=== PATIENT | female | born 1970 | race Native Hawaiian/Other Pacific Islander ===

== ENCOUNTER 2016-08-02 09:45 | Emergency (ER) | payer OTHER ==
[~2016-08-02] VITALS: Ht 157.5 cm; Wt 58.5 kg
[~2016-08-02 09:45] MED LIST: ALBU0.084 IN
[2016-08-02 09:55] VITALS: BP 107/65
[2016-08-02] MEDS ORDERED: ALBUTEROL SULF 2.5 MG/0.5ML(0.5%) NEB SOLN ONE (11:35)
[2016-08-02] MEDS ORDERED: ALBUTEROL SULF 2.5 MG/0.5ML(0.5%) NEB SOLN NEB ONE ×2 (11:45)
[2016-08-02] MEDS ORDERED: IPRATROPIUM BROM 0.5 MG/2.5ML INH SOL NEB ONE (11:45)
[2016-08-02] MEDS ORDERED: methylPREDNISolone SOD SUCC 125 MG/2 ML VL IM ONE (11:45)
[2016-08-02] MEDS ORDERED: cefTRIAXone SOD 500 MG VL IM ONE (11:45)
== END 2016-08-02 12:43 | disposition home or self-care (01) ==
LOC: ER 09:45
DX: J45.901 Unspecified asthma with (acute) exacerbation (principal)
CPT/HCPCS: 94640; 96372; 99283; J2930

== ENCOUNTER 2018-11-27 03:42 | Inpatient (IN) | payer MEDICAID | END 2018-11-28 18:46 | disposition home or self-care (01) | LOC: ER 03:42 → TELE 03:43 → TELE-WESTW 15:36 | DX: J45.42 Moderate persistent asthma with status asthmaticus (principal) ==

== ENCOUNTER → 2019-08-15 | Emergency (ER) | payer SELFPAY ==
[~2019-08-15] VITALS: Ht 157.5 cm; Wt 56.7 kg
[~2019-08-15] MED LIST changes: +ALBUAER3 IN; +ALBUTEROL SULF 2.5 MG/0.5ML(0.5%) NEB SOLN HHN ONE; +CETI1TAB36 PO; +IPRATROPIUM BROM 0.5 MG/2.5ML INH SOL HHN ONE; +SODIUM CHLORIDE 0.9% 1,000 ML IV ONE; +cefTRIAXone 1GM/50ML D5W 50 ML IV ONE; +methylPREDNISolone SOD SUCC 125 MG/2 ML VL IV ONE
[2019-08-15 02:45] LABS: Basophils # (auto) 0.1 10 ^3/uL (0-0.2); Basophils % (auto) 0.3 % (0.0-2.0); Eosinophils # (auto) 0.1 10 ^3/uL (0-0.8); Eosinophils % (auto) 0.6 % (0.0-7.0); Hematocrit 39.8 % (36.0-46.0); Hemoglobin 12.5 g/dL (12.2-16.2); Lymphocytes # (auto) 0.7 10 ^3/uL (0.4-5.4); Lymphocytes % (auto) 3.4 % (10.0-50.0); Mean Corpuscular Hemoglobin 24.5 pg (28.0-32.0); Mean Corpuscular Hgb Conc. 31.3 g/dL (32.0-36.0); Mean Corpuscular Volume 78.3 fL (80.0-100.0); Monocytes # (auto) 0.9 10 ^3/uL (0-1.3); Monocytes % (auto) 4.2 % (0.0-12.0); Neutrophils # (auto) 19.7 10 ^3/uL (1.6-8.6); Neutrophils % (auto) 91.5 % (37.0-80.0); Platelet Count (auto) 488 10^3/uL (140-450); Red Blood Cells 5.09 10^6/uL (4.0-5.20); Red Cell Distribution Width 17.1 % (11.8-14.3); White Blood Cell 21.5 10^3/uL (4.4-10.8)
[2019-08-15 03:10] LABS: Alanine Aminotransferase 22 U/L (13-56); Albumin 3.5 g/dL (3.4-5.0); Anion Gap 7 (5-15); Aspartate Aminotransferase 17 U/L (15-37); BUN/Creatinine Ratio 16.9; Blood Urea Nitrogen 12 mg/dL (7-18); Calcium 8.3 mg/dL (8.5-10.1); Carbon Dioxide 24 mmol/L (21-32); Chloride 104 mmol/L (98-107); GFR African American 113 mL/min; GFR Non-African American 93 mL/min; Glucose 134 mg/dL (74-106); Magnesium 2.1 mg/dL (1.6-2.6); Potassium 3.5 mmol/L (3.5-5.1); Sodium 135 mmol/L (136-145)
[2019-08-15 03:15] LABS: Alkaline Phosphatase 96 U/L (45-117); Bilirubin, Total 0.3 mg/dL (0.2-1.0); Total Protein 8.4 g/dL (6.4-8.2)
[2019-08-15 03:20] LABS: Lactic Acid w/Reflex 2.7 mmol/L (0.4-2.0)
[2019-08-15 05:00] VITALS: BP 125/86
== END | disposition home or self-care (01) ==
LOC: ER 01:05
DX: J06.9 Acute upper respiratory infection, unspecified (principal); D72.829 Elevated white blood cell count, unspecified; R11.2 Nausea with vomiting, unspecified; J45.909 Unspecified asthma, uncomplicated
CPT/HCPCS: 36415; 71045; 80053; 83605; 83735; 83880; 84484; 84702; 85025; 87040; 94640; 96361; 96365; 96375; 99284; J0696; J2930; J7030; J7644

== ENCOUNTER 2019-11-06 22:56 | Inpatient (IN) | payer MEDICAID ==
[~2019-11-06] VITALS: Ht 154.9 cm; Wt 60.5 kg
[~2019-11-06 22:56] MED LIST changes: -ALBUTEROL SULF 2.5 MG/0.5ML(0.5%) NEB SOLN HHN ONE; -IPRATROPIUM BROM 0.5 MG/2.5ML INH SOL HHN ONE; -SODIUM CHLORIDE 0.9% 1,000 ML IV ONE; -cefTRIAXone 1GM/50ML D5W 50 ML IV ONE; -methylPREDNISolone SOD SUCC 125 MG/2 ML VL IV ONE
[2019-11-06] MEDS ORDERED: methylPREDNISolone SOD SUCC 125 MG/2 ML VL IM ONE (23:45)
[2019-11-07] MEDS ORDERED: IPRATROPIUM BROM 0.5 MG/2.5ML INH SOL NEB ONE ×3 (02:30→07:30)
[2019-11-07] MEDS ORDERED: ALBUTEROL SULF 2.5 MG/0.5ML(0.5%) NEB SOLN NEB ONE ×3 (02:30→07:30)
[2019-11-07 03:13] LABS: Alcohol, Urine < 3.0 mg/dL (0-10); Amphetamine Screen, Urine POSITIVE (NEGATIVE); Barbiturate Scree,Urine NEGATIVE (NEGATIVE); Benzodiazephine Screen, Urine NEGATIVE (NEGATIVE); Cannabinoid Screen, Urine POSITIVE (NEGATIVE); Cocaine Screen, Urine NEGATIVE (NEGATIVE); Opiate Scree,Urine NEGATIVE (NEGATIVE); Phencyclidine Screen, Urine NEGATIVE (NEGATIVE)
[2019-11-07] MEDS ORDERED: DOCUSATE SOD 100 MG CAP PO PRN (07:45)
[2019-11-07] MEDS ORDERED: LORazepam 0.5 MG TAB PO PRN (07:45)
[2019-11-07] MEDS ORDERED: ACETAMINOPHEN 325 MG TAB PO PRN (07:45)
[2019-11-07] MEDS ORDERED: ONDANSETRON HCL 4 MG/2 ML VIAL IV PRN (07:45)
[2019-11-07 08:12] LABS: Basophils # (auto) 0 10 ^3/uL (0-0.2); Eosinophils # (auto) 0 10 ^3/uL (0-0.8); Eosinophils % (auto) 0.1 % (0.0-7.0); Lymphocytes # (auto) 0.3 10 ^3/uL (0.4-5.4); Monocytes # (auto) 0.1 10 ^3/uL (0-1.3); Nucleated Red Blood Cells % 0.1 %; White Blood Cell 5.3 10^3/uL (4.4-10.8)
[2019-11-07 08:13] LABS: Basophils % (auto) 0.1 % (0.0-2.0); Hematocrit 36.7 % (36.0-46.0); Hemoglobin 11.4 g/dL (12.2-16.2); Lymphocytes % (auto) 5.7 % (10.0-50.0); Mean Corpuscular Hemoglobin 23.6 pg (28.0-32.0); Mean Corpuscular Hgb Conc. 31.2 g/dL (32.0-36.0); Mean Corpuscular Volume 75.6 fL (80.0-100.0); Monocytes % (auto) 1.1 % (0.0-12.0); Neutrophils # (auto) 4.9 10 ^3/uL (1.6-8.6); Platelet Count (auto) 382 10^3/uL (140-450); Red Blood Cells 4.85 10^6/uL (4.0-5.20); Red Cell Distribution Width 17.2 % (11.8-14.3)
[2019-11-07] MEDS: SODIUM CHLORIDE 0.9% 1,000 ML IV SCH (08:36)
[2019-11-07 08:41] LABS: Alanine Aminotransferase 17 U/L (13-56); Albumin 3.2 g/dL (3.4-5.0); Anion Gap 7 (5-15); Aspartate Aminotransferase 14 U/L (15-37); BUN/Creatinine Ratio 19.2; Blood Urea Nitrogen 14 mg/dL (7-18); Calcium 7.5 mg/dL (8.5-10.1); Carbon Dioxide 25 mmol/L (21-32); Chloride 106 mmol/L (98-107); GFR African American 109 mL/min; GFR Non-African American 90 mL/min; Glucose 136 mg/dL (74-106); Potassium 3.3 mmol/L (3.5-5.1); Sodium 138 mmol/L (136-145)
[2019-11-07 08:45] LABS: Alkaline Phosphatase 75 U/L (45-117); Bilirubin, Total 0.1 mg/dL (0.2-1.0); Total Protein 7.1 g/dL (6.4-8.2)
[2019-11-07] MEDS ORDERED: POTASSIUM EFFERVESENT TAB 25 MEQ PO ONE (09:00)
[2019-11-07] MEDS ORDERED: methylPREDNISolone SOD SUCC 125 MG/2 ML VL IV SCH (10:00)
[2019-11-07] MEDS ORDERED: cefTRIAXone 1GM/50ML D5W 50 ML IV SCH (10:00)
--- NOTE | 2019-11-07 10:13 | NUR ---
Pt Arrived on Unit Pt arrived on unit from ED via stretcher. Pt is a/ox4 with no s/s of distress or SOB. Pt was able to ambulate to bed without difficulty. Safety measures maintained with call light within reach, bed in lowest position and side rails up. Will continue to monitor.
[2019-11-07 10:28] VITALS: BP 138/74
[2019-11-07 10:31] LABS: Urine Bacteria FEW /hpf (None Seen); Urine Blood Negative /uL (Negative); Urine Mucus FEW (None Seen); Urine Specific Gravity 1.023 (1.001-1.035); Urine WBC 4 /hpf (0 - 5)
[2019-11-07 12:44] VITALS: BP 137/68
--- NOTE | 2019-11-07 13:15 | NUR ---
Dr Montano at Bedside MD to see pt. Discussed POC with pt. No new orders at this time. Will continue to monitor.
[2019-11-07 17:11] VITALS: BP 120/68
--- NOTE | 2019-11-07 19:40 | NUR ---
assumed care, pt. awake, no c/o pain, no sob.
[2019-11-07 22:00] VITALS: BP 124/68
[2019-11-07 23:39] VITALS: BP 124/68
[2019-11-08] MEDS: SODIUM CHLORIDE 0.9% 1,000 ML IV SCH (00:20)
[2019-11-08] MEDS: SOD CHL 0.9%/ KCL 20MEQ 1,000 ML IV SCH ×3 (04:30→19:46)
[2019-11-08 05:00] VITALS: BP 117/72
[2019-11-08] MEDS: methylPREDNISolone SOD SUCC 40 MG/ML VL IV SCH ×3 (05:02→21:13)
[2019-11-08 06:02] LABS: Hemoglobin 11.1 g/dL (12.2-16.2); Mean Corpuscular Hemoglobin 23.8 pg (28.0-32.0); Mean Corpuscular Volume 77.1 fL (80.0-100.0); White Blood Cell 27.3 10^3/uL (4.4-10.8)
[2019-11-08 06:05] LABS: Hematocrit 35.9 % (36.0-46.0); Mean Corpuscular Hgb Conc. 30.8 g/dL (32.0-36.0); Platelet Count (auto) 427 10^3/uL (140-450); Red Blood Cells 4.66 10^6/uL (4.0-5.20)
[2019-11-08 06:09] LABS: INR 0.96 (0.9-1.15); Partial Thromboplastin Time 24.8 sec (23.64-32.05)
[2019-11-08 06:11] LABS: Band Neutrophils % (manual) 0; Basophils % (manual) 0 (0.0-2.0); Blast Cells 0; Eosinophils % (manual) 0 (0-7); Metamyelocytes % 0; Myelocytes % 0; Promyelocytes % 0; Reactive Lymphocytes 0
[2019-11-08 06:15] LABS: Chloride 107 mmol/L (98-107); Potassium 4.3 mmol/L (3.5-5.1); Sodium 136 mmol/L (136-145)
[2019-11-08 06:24] LABS: Alanine Aminotransferase 17 U/L (13-56); Albumin 3.1 g/dL (3.4-5.0); Alkaline Phosphatase 71 U/L (45-117); Anion Gap 7 (5-15); Aspartate Aminotransferase 15 U/L (15-37); BUN/Creatinine Ratio 38.8; Bilirubin, Total < 0.1 mg/dL (0.2-1.0); Blood Urea Nitrogen 26 mg/dL (7-18); Calcium 8.2 mg/dL (8.5-10.1); Carbon Dioxide 22 mmol/L (21-32); GFR African American 121 mL/min; GFR Non-African American 100 mL/min; Glucose 99 mg/dL (74-106); Magnesium 2.5 mg/dL (1.6-2.6); Total Protein 6.8 g/dL (6.4-8.2)
[2019-11-08 07:11] LABS: Lymphocytes % (manual) 9 (10.0-50.0); Monocytes % (manual) 3 (0-12)
--- NOTE | 2019-11-08 07:41 | NUR ---
Opening Note Assumed pt care from NOC RN. Pt is a/ox4 with no s/s of distress or SOB. Pt is currently laying in bed with no complaints at this time. Discussed POC with pt; pt verbalized understanding. Safety measures maintained with call light within reach, bed in lowest position and side rails up. Will continue to monitor for changes.
[2019-11-08 09:00] VITALS: BP 132/69
[2019-11-08] MEDS: AZITHROMYCIN 500MG/ 250ML 250 ML IV SCH (09:04)
[2019-11-08] MEDS: ENOXAPARIN SOD 40 MG/0.4 ML SYRINGE SC SCH (09:04)
--- NOTE | 2019-11-08 10:32 | NUR ---
IV Insertion and Removal 20G to pt's L FA inserted. 2 attempts made; pt tolerated well. Clean/sterile technique used. 20G to pt's L AC removed due to infiltration. Catheter was removed fully intact, site is asymptomatic. Pressure was applied to site for 3 minutes with gauze and then wrapped in coban.
[2019-11-08] MEDS: ALBUTEROL SULF 2.5 MG/0.5ML(0.5%) NEB SOLN NEB PRN ×2 (10:58→15:37)
[2019-11-08] MEDS: IPRATROPIUM BROM 0.5 MG/2.5ML INH SOL NEB PRN ×2 (10:58→15:37)
[2019-11-08 14:14] VITALS: BP 127/79
--- NOTE | 2019-11-08 14:14 | NUR ---
Dr Montano at bedside MD to see pt. Discussed POC with pt and plans to d/c pt home tomorrow. MD requested scheduled Q4 breathing treatments. Orders read back and verified. Will continue to monitor.
[2019-11-08] MEDS ORDERED: IPRATROPIUM BROM 0.5 MG/2.5ML INH SOL NEB PRN (14:30)
[2019-11-08 16:47] VITALS: BP 114/54
[2019-11-08] MEDS: ALBUTEROL SULF 2.5 MG/0.5ML(0.5%) NEB SOLN NEB SCH ×3 (19:23→22:44)
[2019-11-08] MEDS: IPRATROPIUM BROM 0.5 MG/2.5ML INH SOL NEB SCH ×3 (19:23→22:44)
--- NOTE | 2019-11-08 19:30 | NUR ---
assumed care, pt. awake, no c/o dizziness, no sob.
[2019-11-08 22:00] VITALS: BP 114/59
--- NOTE | 2019-11-08 22:44 | NUR ---
Respiratory note: AT BEDSIDE FOR MED NEB TX PT DID NOT WANT TO BE WOKEN UP SHE STATS SHE HAS BEEN TIRED ALL DAY . PT COMFORTABLY SLEEPING/ RESTING AT THIS TIME WILL CONTINUE TO MONITOR. RT NAME AND PAGER ASSIGNMENT WRITTEN ON PTS ROOM BOARD.
[2019-11-09] MEDS: IPRATROPIUM BROM 0.5 MG/2.5ML INH SOL NEB SCH ×5 (02:00→18:49)
[2019-11-09] MEDS: ALBUTEROL SULF 2.5 MG/0.5ML(0.5%) NEB SOLN NEB SCH ×5 (02:00→18:49)
--- NOTE | 2019-11-09 02:40 | NUR ---
Respiratory note: AT BESIDE FOR MED NEB TX PT DID NOT WANT TO BE WOKEN UP. RT NAME AND PAGER ASSIGNMENT WRITTEN ON PTS ROOM BOARD. PT WAS MADE AWARE AT EARLIER TIME SHE CAN HAVE ME PAGED IF SHE HAS ANY CONCERN WITH HER BREATHING. WILL CONTINUE TO MONITOR NEEDED.
[2019-11-09 05:00] VITALS: BP 128/66
[2019-11-09] MEDS: methylPREDNISolone SOD SUCC 40 MG/ML VL IV SCH ×2 (05:14→15:07)
[2019-11-09 06:10] LABS: Basophils # (auto) 0 10 ^3/uL (0-0.2); Basophils % (auto) 0.1 % (0.0-2.0); Eosinophils # (auto) 0 10 ^3/uL (0-0.8); Monocytes # (auto) 0.8 10 ^3/uL (0-1.3); Monocytes % (auto) 3.7 % (0.0-12.0)
[2019-11-09 06:11] LABS: Hemoglobin 11.2 g/dL (12.2-16.2); Lymphocytes % (auto) 4.6 % (10.0-50.0); Mean Corpuscular Hemoglobin 23.7 pg (28.0-32.0); Mean Corpuscular Volume 76.5 fL (80.0-100.0); Neutrophils # (auto) 20.5 10 ^3/uL (1.6-8.6); Neutrophils % (auto) 91.6 % (37.0-80.0); Platelet Count (auto) 442 10^3/uL (140-450); Red Blood Cells 4.71 10^6/uL (4.0-5.20); Red Cell Distribution Width 17.6 % (11.8-14.3); White Blood Cell 22.4 10^3/uL (4.4-10.8)
[2019-11-09 06:22] LABS: INR 0.95 (0.9-1.15); Partial Thromboplastin Time 24.8 sec (23.64-32.05)
[2019-11-09 06:29] LABS: Calcium 7.9 mg/dL (8.5-10.1); Magnesium 2.4 mg/dL (1.6-2.6); Potassium 4.2 mmol/L (3.5-5.1)
[2019-11-09 06:33] LABS: BUN/Creatinine Ratio 31.8; Bilirubin, Total 0.1 mg/dL (0.2-1.0); Phosphorus 3.1 mg/dL (2.5-4.90); Total Protein 6.7 g/dL (6.4-8.2)
--- NOTE | 2019-11-09 07:02 | NUR ---
OPENING SHIFT NOTE Assumed care of patient from retail shift manager RN. Patient is alert and oriented x4, no signs of distress noted, patient denies pain. Patient was updated on the plan of care and verbalized understanding. Bed is locked, in the lowest position, side rails up x2 and call light is in reach. Patient was encouraged to call for assistance as needed.
[2019-11-09 09:00] VITALS: BP 126/82
[2019-11-09] MEDS: ENOXAPARIN SOD 40 MG/0.4 ML SYRINGE SC SCH (09:36)
[2019-11-09] MEDS: AZITHROMYCIN 500MG/ 250ML 250 ML IV SCH (09:36)
--- NOTE | 2019-11-09 12:52 | NUR ---
JUDE AT BEDSIDE Updated on patient status, plan of care discussed with patient and she verbalized understanding. Per MD patient may be DC today.
[2019-11-09 13:00] VITALS: BP 126/74
[2019-11-09 16:53] VITALS: BP 132/86
--- NOTE | 2019-11-09 17:13 | NUR ---
ss consult Per ss consult advanced directive information. Patient has been provided with advanced directive. Addendum: 11/09/19 at 1714 by Maria Fernanda WILSON Amended: Links added.
[2019-11-09 17:40] VITALS: BP 121/73
--- NOTE | 2019-11-09 18:59 | NUR ---
Discharge Discharge instructions given as ordered. Encourage to follow up with PMD as instructed. All questions and concerns addressed. Patient verbalized understanding. Medication reconciliation form completed and copy given to patient. IV removed with catheter intact, pressure dressing applied. Patient taken to vehicle via wheelchair with all personal belongings, accompanied by staff. No distress noted at time of departure.
== END 2019-11-09 18:52 | disposition home or self-care (01) | DRG 141 ==
LOC: ER 22:56 → EDBD 22:56 → OVERFLOW 22:57 → WEST WING 11-07 10:26
PROVIDERS: ADMIT Hospitalist; ATTEND Internal Medicine Nephrology
DX: J45.42 Moderate persistent asthma with status asthmaticus (principal); E44.1 Mild protein-calorie malnutrition; E87.6 Hypokalemia; F17.200 Nicotine dependence, unspecified, uncomplicated; F19.10 Other psychoactive substance abuse, uncomplicated; J30.2 Other seasonal allergic rhinitis; Z82.5 Family history of asthma and other chronic lower respiratory diseases; Z83.3 Family history of diabetes mellitus; Z82.61 Family history of arthritis; Z71.6 Tobacco abuse counseling; Z68.25 Body mass index [BMI] 25.0-25.9, adult; J44.1 Chronic obstructive pulmonary disease with (acute) exacerbation
CPT/HCPCS: 36415; 36600; 71045; 80053; 80307; 81001; 81025; 82805; 83605; 83735; 83880; 84100; 84484; 84702; 85007; 85025; 85027; 85610; 85730; 87040; 93005; 94640; 94644; G0378; J0696

== ENCOUNTER → 2019-12-19 | Emergency (ER) | payer SELFPAY ==
[~2019-12-19] VITALS: Ht 154.9 cm; Wt 56.7 kg
[~2019-12-19] MED LIST changes: +ALBUTEROL SULF 2.5 MG/0.5ML(0.5%) NEB SOLN NEB ONE; +IPRATROPIUM BROM 0.5 MG/2.5ML INH SOL NEB ONE; +methylPREDNISolone SOD SUCC 125 MG/2 ML VL IV ONE
[2019-12-19 20:11] VITALS: BP 132/86
[2019-12-19 20:18] LABS: Basophils # (auto) 0 10 ^3/uL (0-0.2); Eosinophils # (auto) 0.4 10 ^3/uL (0-0.8); Hematocrit 39.2 % (36.0-46.0); Hemoglobin 12.1 g/dL (12.2-16.2); Monocytes # (auto) 0.5 10 ^3/uL (0-1.3); Red Cell Distribution Width 17.9 % (11.8-14.3)
[2019-12-19 20:20] LABS: Basophils % (auto) 0.4 % (0.0-2.0); Eosinophils % (auto) 5.1 % (0.0-7.0); Lymphocytes # (auto) 1.4 10 ^3/uL (0.4-5.4); Mean Corpuscular Hemoglobin 23.5 pg (28.0-32.0); Mean Corpuscular Hgb Conc. 30.8 g/dL (32.0-36.0); Mean Corpuscular Volume 76.4 fL (80.0-100.0); Monocytes % (auto) 6.7 % (0.0-12.0); Neutrophils % (auto) 68.8 % (37.0-80.0); Nucleated Red Blood Cells % 0.1 %; Platelet Count (auto) 427 10^3/uL (140-450); Red Blood Cells 5.13 10^6/uL (4.0-5.20); White Blood Cell 7.2 10^3/uL (4.4-10.8)
[2019-12-19 20:39] LABS: Calcium 8.2 mg/dL (8.5-10.1); Chloride 108 mmol/L (98-107); Potassium 3.4 mmol/L (3.5-5.1); Sodium 139 mmol/L (136-145)
[2019-12-19 20:47] LABS: Alanine Aminotransferase 17 U/L (13-56); Albumin 3.3 g/dL (3.4-5.0); Alkaline Phosphatase 74 U/L (45-117); Anion Gap 3 (5-15); Aspartate Aminotransferase 11 U/L (15-37); BUN/Creatinine Ratio 23.8; Bilirubin, Total 0.1 mg/dL (0.2-1.0); Blood Urea Nitrogen 19 mg/dL (7-18); Carbon Dioxide 28 mmol/L (21-32); GFR African American 98 mL/min; GFR Non-African American 81 mL/min; Glucose 100 mg/dL (74-106); Total Protein 7.2 g/dL (6.4-8.2)
== END | disposition home or self-care (01) ==
LOC: EDBD 19:39 → ER 19:39 → EDUNIT# 19:39
DX: J45.901 Unspecified asthma with (acute) exacerbation (principal)
CPT/HCPCS: 36415; 71045; 80053; 84484; 85025; 94640; 96374; 99284; J2930; J7644

== ENCOUNTER 2019-12-26 19:24 | Emergency (ER) | payer MEDICAID ==
[~2019-12-26] VITALS: Ht 165.1 cm; Wt 65.8 kg
[~2019-12-26 19:24] MED LIST changes: -ALBUTEROL SULF 2.5 MG/0.5ML(0.5%) NEB SOLN NEB ONE; -IPRATROPIUM BROM 0.5 MG/2.5ML INH SOL NEB ONE; -methylPREDNISolone SOD SUCC 125 MG/2 ML VL IV ONE
[2019-12-26 19:51] VITALS: BP 131/84
[2019-12-26] MEDS ORDERED: SODIUM CHLORIDE 0.9% 1,000 ML IV ONE (21:45)
[2019-12-26] MEDS ORDERED: methylPREDNISolone SOD SUCC 125 MG/2 ML VL IV ONE (21:45)
[2019-12-26] MEDS ORDERED: IPRATROPIUM BROM 0.5 MG/2.5ML INH SOL NEB ONE (21:45)
[2019-12-26] MEDS ORDERED: ALBUTEROL SULF 2.5 MG/0.5ML(0.5%) NEB SOLN NEB ONE (21:45)
== END 2019-12-26 23:37 | disposition home or self-care (01) ==
LOC: ER 19:25
DX: J45.901 Unspecified asthma with (acute) exacerbation (principal); J01.00 Acute maxillary sinusitis, unspecified
CPT/HCPCS: 71045; 94640; 96374; 99283; J2930; J7030; J7644; 94644

== ENCOUNTER 2020-03-05 10:09 | Inpatient (IN) | payer MEDICAID ==
[~2020-03-05] VITALS: Ht 154.9 cm; Wt 60.0 kg
[2020-03-05 12:04] LABS: Basophils # (auto) 0 10 ^3/uL (0-0.2); Eosinophils # (auto) 0.4 10 ^3/uL (0-0.8); Hematocrit 23.8 % (36.0-46.0); Hemoglobin 7.6 g/dL (12.2-16.2); Lymphocytes # (auto) 1.7 10 ^3/uL (0.4-5.4); Mean Corpuscular Hemoglobin 23.1 pg (28.0-32.0); Monocytes # (auto) 0.5 10 ^3/uL (0-1.3)
[2020-03-05 12:06] LABS: Basophils % (auto) 0.5 % (0.0-2.0); Eosinophils % (auto) 6.1 % (0.0-7.0); Lymphocytes % (auto) 24.2 % (10.0-50.0); Mean Corpuscular Volume 72.1 fL (80.0-100.0); Monocytes % (auto) 6.5 % (0.0-12.0); Neutrophils # (auto) 4.5 10 ^3/uL (1.6-8.6); Neutrophils % (auto) 62.7 % (37.0-80.0); Platelet Count (auto) 499 10^3/uL (140-450); Red Cell Distribution Width 16.9 % (11.8-14.3); White Blood Cell 7.2 10^3/uL (4.4-10.8)
[2020-03-05 12:49] LABS: Albumin 3.6 g/dL (3.4-5.0); Calcium 8.3 mg/dL (8.5-10.1); Potassium 3.3 mmol/L (3.5-5.1)
[2020-03-05 12:51] LABS: Bilirubin, Total 0.2 mg/dL (0.2-1.0); Total Protein 7.6 g/dL (6.4-8.2)
[2020-03-05 13:30] LABS: Urine Bacteria NONE SEEN /hpf (None Seen); Urine Blood 3+ /uL (Negative); Urine Mucus FEW (None Seen); Urine Specific Gravity 1.022 (1.001-1.035); Urine WBC 10 /hpf (0 - 5)
[2020-03-05] MEDS ORDERED: SODIUM CHLORIDE 0.9% 1,000 ML IVB ONE (14:15)
[2020-03-05 14:59] LABS: INR 0.95 (0.9-1.15); Partial Thromboplastin Time 26.4 sec (23.0-31.2)
[2020-03-05 16:27] LABS: INR 0.97 (0.9-1.15)
[2020-03-05] MEDS ORDERED: cefTRIAXone 1GM/50ML D5W 50 ML IV ONE (16:30)
[2020-03-05] MEDS ORDERED: POTASSIUM CHL 20 Meq TABLET PO ONE (16:30)
[2020-03-05] MEDS ORDERED: NITROGLYCERIN 0.4 MG SL TAB SL PRN ×2 (17:15→19:30)
[2020-03-05] MEDS: medroxyPROGESTERone ACETATE 5 MG TAB PO ONE ×2 (17:15→19:01)
[2020-03-05] MEDS ORDERED: MORPHINE SULF INJ 2 MG/ML SYRINGE 1ML IV PRN ×3 (17:15→19:30)
[2020-03-05] MEDS ORDERED: POTASSIUM CHL 20MEQ/100ML 100 ML IV ONE ×2 (17:15→20:52)
[2020-03-05] MEDS: CLINDAMYCIN 600MG IV 50 ML IV ONE ×2 (19:01→20:57)
--- NOTE | 2020-03-05 19:20 | NUR ---
OPENING SHIFT NOTE Assumed care of patient who is alert and oriented and currently on RA with no S/S of distress, denies and pain at this time. PIV to the right AC gauge 20 flushed with 10ml NS. Left ankle erythema and edema noted, skin is warm to touch. Patient is ambulatory without assistance. POC discussed with patient and all questions answered. Bed in lowest position locked and side rails up x2. Call light within reach. Will continue to monitor PRN.
[2020-03-05] MEDS ORDERED: SODIUM CHLORIDE 0.9% 1,000 ML IV ONE (19:30)
[2020-03-05] MEDS ORDERED: LORazepam 0.5 MG TAB PO PRN (19:30)
[2020-03-05] MEDS ORDERED: SODIUM FERR GLUC 62.5MG/5ML 125 MG in SODIUM CHL 0.9% 100 ML IV ONE ×2 (19:30→21:00)
[2020-03-05] MEDS ORDERED: ONDANSETRON HCL 4 MG/2 ML VIAL IV PRN (19:30)
[2020-03-05] MEDS ORDERED: ALUM & MAG HYDROX-SIMETH LIQ(MAALOX) 30 ML PO PRN (19:30)
[2020-03-05] MEDS: SODIUM CHLORIDE 0.9% 1,000 ML IV SCH (19:30)
[2020-03-05] MEDS ORDERED: DOCUSATE SOD 100 MG CAP PO PRN (19:30)
[2020-03-05] MEDS ORDERED: HYDROcodone-ACET 5/325MG TAB PO PRN (19:30)
[2020-03-05 19:32] VITALS: BP 108/38
[2020-03-05] MEDS ORDERED: PANTOPRAZOLE 40 MG/10 ML VIAL INJ IV ONE (19:45)
[2020-03-05 20:45] LABS: Cholesterol 128 mg/dL (< 200); HDL Cholesterol 39 mg/dL (40-59); LDL Cholesterol 80 mg/dL (< 100); Triglycerides 77 mg/dL (< 150)
[2020-03-05] MEDS ORDERED: medroxyPROGESTERone ACETATE 5 MG TAB PO ONE (21:00)
--- NOTE | 2020-03-05 21:00 | NUR ---
UNAVAILABLE MEDICATION Ferrlecit and Provera not available in the [facility], warehouser notified per Nima Rosario RN, unavailable in the facility will pass onto day shift RN to notify pharmacy.
--- NOTE | 2020-03-05 21:15 | NUR ---
IV REMOVAL IV to the left AC DC'd with clean sterile technique, catheter fully intact. Pressure dressing applied to site. Patient tolerated well.
--- NOTE | 2020-03-05 21:20 | NUR ---
IV INSERTION 2 IV access obtained, via clean sterile technique by inserting 22 gauge catheter at left forearm and a right forearm gauge 22 catheter after 1 attempt. IV's secured properly. No trauma to site. Patient tolerated well.
[2020-03-05] MEDS: BUDESONIDE (INHALATION) 0.5 MG/2 ML NEB NEB SCH (21:51)
[2020-03-05] MEDS: ALBUTEROL SULF 2.5 MG/0.5ML(0.5%) NEB SOLN NEB PRN (21:51)
[2020-03-05 22:00] VITALS: BP 122/70
[2020-03-05 22:46] VITALS: BP 110/74
--- NOTE | 2020-03-05 23:00 | NUR ---
BLOOD TRANSFUSION Transfusion of one unit of PRBC initiated. VSS see transfusion documentation. Patient educated on s/s to monitor for adverse reaction.
[2020-03-05 23:19] VITALS: BP 112/79
[2020-03-06] VITALS (7 sets, daily range): BP systolic 103–134; BP diastolic 60–76
--- NOTE | 2020-03-06 | NUR ---
CHANGE IN CONDITION Patient difficult to arouse, eyes appear glazed over and unfocused. Vital signs: RR 11, HR 74, T 98.1, BP 109/61, Spo2 95% Charge nurse made aware, patient placed on 2L NC for maintenance will continue to monitor. Addendum: 03/06/20 at 0036 by PRABHAKAR MTZ RN RN CONTACTED LAB Toxicology screen to be ran on previous urine sample.
[2020-03-06] MEDS: CLINDAMYCIN 600MG IV 50 ML IV SCH ×4 (00:07→21:50)
[2020-03-06 01:31] LABS: Amphetamine Screen, Urine POSITIVE (NEGATIVE); Barbiturate Scree,Urine NEGATIVE (NEGATIVE); Benzodiazephine Screen, Urine NEGATIVE (NEGATIVE); Cannabinoid Screen, Urine POSITIVE (NEGATIVE); Cocaine Screen, Urine NEGATIVE (NEGATIVE); Opiate Scree,Urine NEGATIVE (NEGATIVE); Phencyclidine Screen, Urine NEGATIVE (NEGATIVE)
--- NOTE | 2020-03-06 07:55 | NUR ---
OPENING SHIFT NOTE Assumed care of patient. PT is alert and oriented with no S/S of distress. PT is lethargic but easily arousable. PT states she is tried but otherwise feels well. POC discussed with patient and all questions answered. Bed in lowest position locked and side rails up x2. Call light within reach. Will continue to monitor PRN.
[2020-03-06] MEDS: BUDESONIDE (INHALATION) 0.5 MG/2 ML NEB NEB SCH ×2 (09:32→22:56)
[2020-03-06] MEDS: PANTOPRAZOLE 40 MG/10 ML VIAL INJ IV SCH (10:41)
[2020-03-06] MEDS: cefTRIAXone 1GM/50ML D5W 50 ML IV SCH (10:41)
[2020-03-06] MEDS: SODIUM CHLORIDE 0.9% 1,000 ML IV SCH (11:58)
[2020-03-06] MEDS: SODIUM FERR GLUC 62.5MG/5ML 125 MG in SODIUM CHL 0.9% 100 ML IV SCH (13:35)
[2020-03-06] MEDS: ACETAMINOPHEN 325 MG TAB PO PRN (13:36)
--- NOTE | 2020-03-06 15:20 | NUR ---
DR MALAVE IN TO SEE PT.
[2020-03-06 17:55] LABS: Hematocrit 23.8 % (36.0-46.0); Hemoglobin 7.7 g/dL (12.2-16.2)
--- NOTE | 2020-03-06 19:40 | NUR ---
OPENING SHIFT NOTE Assumed care of patient who is O x4, nut lethargic. Currently on RA with no s/s of distress. Denies pain at this time. PIV in right forearm is intact and patent. Currently infusing IVF as ordered. PIV in left forearm is intact and patent. Flushed with 10ml NS. Left foot and ankle noted to be edematous, reddened and warm to the touch. No openings in skin noted. Patient is ambulatory without the use of assistive devices at baseline. Bed is in low locked position with side rails up x2. Call light is within reach and patient encouraged to call for assistance when needed. Will continue to monitor for changes PRN.
--- NOTE | 2020-03-06 22:20 | NUR ---
PATIENT OFF UNIT Patient signed AMA to go down stairs to the vending machine. Patient is wearing surgical mask while outside of room. Patient instructed that she may not be off unit for more than 30 minutes. Patient verbalized understanding.
--- NOTE | 2020-03-06 22:49 | NUR ---
PATIENT ON UNIT Patient returned to unit. No distress noted.
[2020-03-07] VITALS (11 sets, daily range): BP systolic 118–148; BP diastolic 69–90
[2020-03-07] MEDS: SODIUM CHLORIDE 0.9% 1,000 ML IV SCH ×2 (04:41→21:34)
[2020-03-07] MEDS: CLINDAMYCIN 600MG IV 50 ML IV SCH ×3 (05:30→21:34)
[2020-03-07 06:29] LABS: Basophils # (auto) 0 10 ^3/uL (0-0.2); Eosinophils # (auto) 0.3 10 ^3/uL (0-0.8); Hemoglobin 7.4 g/dL (12.2-16.2); Monocytes # (auto) 0.4 10 ^3/uL (0-1.3); Red Cell Distribution Width 18.8 % (11.8-14.3)
[2020-03-07 06:31] LABS: Basophils % (auto) 0.6 % (0.0-2.0); Eosinophils % (auto) 4.7 % (0.0-7.0); Hematocrit 22.1 % (36.0-46.0); Lymphocytes # (auto) 1.1 10 ^3/uL (0.4-5.4); Lymphocytes % (auto) 19.2 % (10.0-50.0); Mean Corpuscular Hemoglobin 25.2 pg (28.0-32.0); Mean Corpuscular Hgb Conc. 33.6 g/dL (32.0-36.0); Monocytes % (auto) 6.8 % (0.0-12.0); Neutrophils % (auto) 68.7 % (37.0-80.0); Platelet Count (auto) 404 10^3/uL (140-450); Red Blood Cells 2.95 10^6/uL (4.0-5.20); White Blood Cell 5.8 10^3/uL (4.4-10.8)
[2020-03-07 06:43] LABS: BUN/Creatinine Ratio 27.7; Calcium 7.6 mg/dL (8.5-10.1); Potassium 3.7 mmol/L (3.5-5.1)
[2020-03-07] MEDS: BUDESONIDE (INHALATION) 0.5 MG/2 ML NEB NEB SCH ×2 (07:05→22:53)
[2020-03-07] MEDS: PANTOPRAZOLE 40 MG/10 ML VIAL INJ IV SCH (09:50)
[2020-03-07] MEDS: cefTRIAXone 1GM/50ML D5W 50 ML IV SCH (09:50)
[2020-03-07] MEDS ORDERED: MULTIPLE VITAMINS W/ MINERALS TAB PO ONE (10:30)
[2020-03-07] MEDS: SODIUM FERR GLUC 62.5MG/5ML 125 MG in SODIUM CHL 0.9% 100 ML IV SCH (12:38)
[2020-03-07] MEDS: FERROUS SULFATE 325 MG TAB PO SCH ×2 (12:38→18:00)
--- NOTE | 2020-03-07 18:35 | NUR ---
PRBC started as ordered, cont monitor in room.
--- NOTE | 2020-03-07 18:50 | NUR ---
Patient tolerating transfusion well, no s/s of allergic reaction noted or adverse reaction. Rate increased to 100ml/hr at this time. Pt instructed to report any signs of adverse reaction to primary nursing immediately if they occur she verbalized understanding. Call light within reach.
--- NOTE | 2020-03-07 19:00 | NUR ---
Patient care endorsed endorsed care to Maia del real. Patient laying comfortably in bed no acute distress or sob noted. PRBC infusing at 100ml/hr at this time, call light within reach.
--- NOTE | 2020-03-07 19:50 | NUR ---
Opening Shift Note Assumed care of patient, awake and alert. No S/S of distress/SOB or pain. Patient running blood transfusion reports no side effects.VS obtained. Instructed on POC and to for assist PRN, will continue to monitor for changes Q1hr and PRN.
--- NOTE | 2020-03-07 21:00 | NUR ---
blood transfusion blood transfusion ended. no allergic reaction noted or reported vs taken.
--- NOTE | 2020-03-07 22:00 | NUR ---
VS taken no allergic reaction noted or reported by patient.
[2020-03-07] MEDS: ALBUTEROL SULF 2.5 MG/0.5ML(0.5%) NEB SOLN NEB PRN (22:53)
[2020-03-08 05:00] VITALS: BP 119/80
[2020-03-08 05:14] LABS: Eosinophils # (auto) 0.3 10 ^3/uL (0-0.8); Monocytes # (auto) 0.6 10 ^3/uL (0-1.3); Nucleated Red Blood Cells % 0.3 %
[2020-03-08 05:16] LABS: Basophils # (auto) 0.1 10 ^3/uL (0-0.2); Basophils % (auto) 0.7 % (0.0-2.0); Eosinophils % (auto) 3.6 % (0.0-7.0); Hematocrit 26.7 % (36.0-46.0); Lymphocytes # (auto) 1.5 10 ^3/uL (0.4-5.4); Lymphocytes % (auto) 18.3 % (10.0-50.0); Mean Corpuscular Hemoglobin 25.7 pg (28.0-32.0); Mean Corpuscular Hgb Conc. 33.5 g/dL (32.0-36.0); Mean Corpuscular Volume 76.6 fL (80.0-100.0); Monocytes % (auto) 7.4 % (0.0-12.0); Neutrophils # (auto) 5.8 10 ^3/uL (1.6-8.6); Platelet Count (auto) 435 10^3/uL (140-450); Red Blood Cells 3.49 10^6/uL (4.0-5.20); Red Cell Distribution Width 19.1 % (11.8-14.3); White Blood Cell 8.3 10^3/uL (4.4-10.8)
[2020-03-08] MEDS: CLINDAMYCIN 600MG IV 50 ML IV SCH ×2 (05:29→14:04)
[2020-03-08] MEDS: ACETAMINOPHEN 325 MG TAB PO PRN (05:36)
[2020-03-08 05:39] LABS: Calcium 7.9 mg/dL (8.5-10.1); Potassium 3.5 mmol/L (3.5-5.1)
[2020-03-08 05:42] LABS: BUN/Creatinine Ratio 24.2
--- NOTE | 2020-03-08 07:19 | NUR ---
report given to dayshift rn patient denies sob distress or pain
--- NOTE | 2020-03-08 07:40 | NUR ---
RECEIVED PATIENT ALERT AND ORIENTED X4, NOT IN DISTRESS, CLEAR SOUNDS IN BILATERAL LUNG LOBES, RR=20 SAT=97%, DEEP BREATHING AND COUGHING ENCOURAGED, DEMONSTRATED AND VERBALIZED UNDERSTANDING, DENIED SOB AND CHEST PAIN, HEART RATE=78 SR ON TELE MONITOR, ABDOMEN SOFT WITH ACTIVE BS, TOLERATED BREAKFAST WELL, LAST BM=03/05/20 REPORTED, SKIN INTACT WARM TO TOUCH, REDIAL AND PEDAL PULSES PALPABLE, RESTING ON BED, HEAD OF BED ELEVATED, BED ON LOW POSITION, RAILS UP X2, CALL LIGHT ON REACH, WILL CONTINUE MONITORING.
[2020-03-08] MEDS: FERROUS SULFATE 325 MG TAB PO SCH ×3 (08:18→17:25)
[2020-03-08 08:54] VITALS: BP 135/77
[2020-03-08] MEDS ORDERED: MULTIPLE VITAMINS W/ MINERALS TAB PO SCH (10:00)
--- NOTE | 2020-03-08 10:00 | NUR ---
PENDING SS CONSULT, SS CONTACTED, SS ASSESSED PATIENT REPORTED, NOT IN DISTRESS, DENIED PAIN, RESTING ON BED AT THIS MOMENT, WILL CONTINUE MONITORING.
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
[2020-03-08] MEDS: cefTRIAXone 1GM/50ML D5W 50 ML IV SCH (10:56)
[2020-03-08] MEDS: PANTOPRAZOLE 40 MG/10 ML VIAL INJ IV SCH (10:56)
[2020-03-08] MEDS: ALBUTEROL SULF 2.5 MG/0.5ML(0.5%) NEB SOLN NEB PRN (11:13)
[2020-03-08] MEDS: BUDESONIDE (INHALATION) 0.5 MG/2 ML NEB NEB SCH (11:13)
[2020-03-08] MEDS: SODIUM FERR GLUC 62.5MG/5ML 125 MG in SODIUM CHL 0.9% 100 ML IV SCH (12:40)
--- NOTE | 2020-03-08 12:42 | NUR ---
Nutrition Assessment notes please see attached link for complete assessment [employer] needs BW 60 [id number] kcals (23-25 kcal/kgBW), Est Protein needs: 60-72 gms/day (1.0-1.2 gm/kgBW). Will continue to monitor and reassess prn. Addendum: 03/08/20 at [address] Amended: Links added.
[2020-03-08 12:54] VITALS: BP 135/75
[2020-03-08] MEDS ORDERED: MEDR5TAB28 PO (13:19)
[2020-03-08] MEDS ORDERED: MULT-351 PO (13:19)
[2020-03-08] MEDS ORDERED: FER325T PO (13:19)
[2020-03-08] MEDS ORDERED: medroxyPROGESTERone ACETATE 5 MG TAB PO ONE (13:30)
--- NOTE | 2020-03-08 14:00 | NUR ---
PHARMACY CONTACTED FOR PROVERA PO MEDICATION FOLLOW UP, PHARMACY WILL SEND THE MEDICATION REPORTED, WILL CONTINUE MONITORING.
[2020-03-08] MEDS: SODIUM CHLORIDE 0.9% 1,000 ML IV SCH (14:10)
--- NOTE | 2020-03-08 15:52 | NUR ---
RESTING ON BED, NOT IN DISTRESS, DENIED PAIN, WILL CONTINUE MONITORING.
[2020-03-08 16:54] VITALS: BP 119/74
--- NOTE | 2020-03-08 17:30 | NUR ---
[facility] CONTA[facility] TO BRING PRESCRIPTION MEDICATIONS, D/C IV AND TELE, WAITING FOR RIDE TO BE D/C
--- NOTE | 2020-03-08 18:33 | NUR ---
DISCHARGE INSTRUCTIONS AND EDUCATION PROVIDED, VERBALIZED UNDERSTANDING, HOMELESS SERVICES LIST PROVIDED, FOLLOW UP WITH PCP WILL BE DONE BY CALLING FROM HOME REPORTED, PRESCRIPTION MEDICATIONS PROVIDED BY [facility], TOLERATED 100% OF PROVIDED DINNER, VS T=97.8 RR=18 SAT= 975, P=82 OE=269/71, NOT IN DISTRESS, DENIED PAIN, D/C ON WC, TOOK ALL BELONGINGS AND LEFT NOTHING BEHIND.
== END 2020-03-08 18:30 | disposition home or self-care (01) | DRG 532 ==
LOC: ER 10:09 → TELE 10:10 → UNDODISIN 18:50 → TELE-WESTW 19:08
PROVIDERS: ADMIT Hospitalist; ATTEND Internal Medicine
PROC: 30230N1 Transfusion of Nonautologous Red Blood Cells into Peripheral Vein, Open Approach (ICD-10-PCS; principal; 2020-03-05)
DX: N93.8 Other specified abnormal uterine and vaginal bleeding (principal); D62 Acute posthemorrhagic anemia; N92.0 Excessive and frequent menstruation with regular cycle; F12.90 Cannabis use, unspecified, uncomplicated; D47.3 Essential (hemorrhagic) thrombocythemia; D50.9 Iron deficiency anemia, unspecified; Z59.0 Homelessness; Z82.5 Family history of asthma and other chronic lower respiratory diseases; Z82.61 Family history of arthritis; Z83.3 Family history of diabetes mellitus
CPT/HCPCS: 36415; 73610; 76830; 76856; 80048; 80053; 80061; 80307; 81001; 81025; 83036; 83540; 83550; 83735; 83880; 84443; 84484; 85014; 85018; 85025; 85384; 85610; 85730; 86850; 86900; 86901; 86920; 87040; 87086; 93971; 94640; 96361; 96365; 99291; C9113; G0378; J0696; J1756; J3480; J3490